=== PATIENT | female | born 1945 | race Asian ===

== ENCOUNTER 2020-03-09 09:11 | Emergency (ER) | payer MEDICARE, OTHER ==
[~2020-03-09] VITALS: Ht 152.4 cm; Wt 53.1 kg
[2020-03-09 09:23] VITALS: BP 145/82
[2020-03-09] MEDS ORDERED: ACETAMINOPHEN 325 MG TAB PO ONE (10:45)
== END 2020-03-09 11:23 | disposition home or self-care (01) ==
LOC: ER 09:11
DX: S00.83XA Contusion of other part of head, initial encounter (principal); M79.642 Pain in left hand; Z88.0 Allergy status to penicillin; W01.0XXA Fall on same level from slipping, tripping and stumbling without subsequent striking against object, initial encounter; Y93.01 Activity, walking, marching and hiking; Y92.89 Other specified places as the place of occurrence of the external cause; Y99.8 Other external cause status
CPT/HCPCS: 29125; 70450; 70486; 73130